=== PATIENT | female | born 2000 | race Caucasian/White ===

== ENCOUNTER 2024-05-16 10:57 | Emergency (ER) | payer SELFPAY ==
[2024-05-16 11:06] VITALS: BP 134/87; PULSE 90; RESP 14; TEMP 36.4; O2SAT 99; BMI 43.9
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
[2024-05-16] MEDS: IBUPROFEN 400 MG TABLET PO (12:49)
== END 2024-05-16 13:04 | disposition home or self-care (01) ==
PROVIDERS: Emergency Provider Physician Assistant
DX: S16.1XXA Strain of muscle, fascia and tendon at neck level, initial encounter (principal); S09.90XA Unspecified injury of head, initial encounter; V89.2XXA Person injured in unspecified motor-vehicle accident, traffic, initial encounter
CPT/HCPCS: 99283